=== PATIENT | male | born 1960 | race Caucasian/White ===

== ENCOUNTER 2020-05-07 13:53 | Day surgery (SDC) | payer MEDICARE ==
[2020-04-30 16:02] LABS: BASOPHILS % (AUTO) 0.2 % (0-1); EOSINOPHILS # (AUTO) 0.1 X10'3 (0-0.9); EOSINOPHILS % (AUTO) 1.3 % (0-6); LYMPHOCYTES # (AUTO) 1.3 X10'3 (1.1-4.8); LYMPHOCYTES % (AUTO) 27.5 % (21-51); MEAN CORPUSCULAR HEMOGLOBIN 27.2 PG (27.0-31.0); MEAN CORPUSCULAR HGB CONC 32.9 g/dL (33.0-36.5); MEAN CORPUSCULAR VOLUME 82.7 FL (78-98); MEAN PLATELET VOLUME 7.7 FL (7.4-10.4); MONOCYTES # (AUTO) 0.5 X10'3 (0-0.9); MONOCYTES % (AUTO) 9.4 % (2-12); NEUTROPHILS % (AUTO) 61.6 % (42-75); PRE OP HEMATOCRIT 42.1 % (42.0-52.0); PRE OP HEMOGLOBIN 13.8 g/dL (14.0-17.9); PRE OP PLATELET COUNT 213 X10'3 (140-440); RED BLOOD COUNT 5.08 X10'6 (4.70-6.10); RED CELL DISTRIBUTION WIDTH 15.5 % (11.5-14.5)
[2020-04-30 16:23] LABS: ALBUMIN 3.7 G/DL (3.4-5.0); ALBUMIN/GLOBULIN RATIO 0.8 (1.1-1.5); ALKALINE PHOSPHATASE 101 IU/L (46-116); BLOOD UREA NITROGEN 18 MG/DL (7-18); BUN/CREATININE RATIO 14.6 (5.4-32.0); CALCIUM 9.2 MG/DL (8.5-10.1); CHLORIDE 101 MMOL/L (99-107); CREATININE 1.23 MG/DL (0.60-1.10); PRE OP ALT 20 U/L (30-65); PRE OP ANION GAP 7 (8-16); PRE OP AST 12 U/L (10-37); PRE OP BILIRUB, TOTAL 0.7 MG/DL (0.0-1.0); PRE OP GLUCOSE 144 MG/DL (70-104); PRE OP SODIUM 135 MMOL/L (135-145); TOTAL CARBON DIOXIDE 26.8 MMOL/L (24-32); TOTAL PROTEIN 8.4 G/DL (6.4-8.2); eGFR 60 ML/MIN
[~2020-05-07] VITALS: Ht 190.5 cm; Wt 110.9 kg
[2020-05-07] VITALS (7 sets, daily range): BP systolic 126–155; BP diastolic 71–90
[~2020-05-07 13:53] MED LIST: EMPA10TA PO; GLIP10TA11 PO; METF-438 PO; PIOG15TA8 PO; SIMV10TA98 PO; ceFAZolin 2gm in dextrose, iso 50 ML IV ONE; famotidine 20mg tablet PO ONE; ringers solution, lacted 1,000 ML IV SCH
[2020-05-07] MEDS ORDERED: sevoflurane 250ml liquid IH ONE (15:54)
[2020-05-07] MEDS ORDERED: fentaNYL/PF 50MCG/1 ML 2ML syringe ONE (15:54)
[2020-05-07] MEDS ORDERED: midazolam 2 mg/2 ml injection ONE (15:56)
[2020-05-07] MEDS ORDERED: ondansetron/PF 4mg/2ml inj ONE (16:08)
[2020-05-07] MEDS ORDERED: LIDOcaine 2% (20mg/ml) 5ml vial ONE (16:08)
[2020-05-07] MEDS ORDERED: dexamethasone sod phosphate 4mg/ml inj. ONE (16:08)
[2020-05-07] MEDS ORDERED: propofol inj 20 ML IV ONE (16:08)
[2020-05-07] MEDS ORDERED: acetaminophen 1,000mg/100ml IV 100 ML IV PRN (16:45)
[2020-05-07] MEDS ORDERED: morphine 4 MG/ML inj SYRINge IV PRN (16:45)
[2020-05-07] MEDS ORDERED: proCHLORperazine 10 MG/2 ml inj IV PRN (16:45)
[2020-05-07] MEDS ORDERED: hydrALAZINE 20mg/ml inj. IV PRN (16:45)
[2020-05-07] MEDS ORDERED: ondansetron/PF 4mg/2ml inj IV PRN (16:45)
[2020-05-07] MEDS ORDERED: meperidine/PF 25mg/ml syringe IV PRN ×3 (16:45)
[2020-05-07] MEDS ORDERED: morphine 2 MG/ML inj. syringe IV PRN (16:45)
[2020-05-07] MEDS ORDERED: labetalol 20mg/4ml (5mg/ml) syringe IV PRN (16:45)
[2020-05-07] MEDS ORDERED: ringers solution, lacted 1,000 ML IV SCH (16:45)
--- NOTE | 2020-05-07 16:45 | NUR ---
Received from OR via [facility], accompanied by Anesthesiologist DAYNE and report given by Anesthesiolgist. PATIENT WITH 20G PIV IN LEFT UE RUNNING LR AT 100. RIGHT FOOT DRESSING IS CDI. VSS. Addendum: 05/07/20 at 1726 by Srinivasa Morris RN, RN Amended: Links added.
--- NOTE | 2020-05-07 17:35 | NUR ---
ALL CRITERIA FOR DC HOME HAS BEEN ACHIEVED. VOIDED AND PATIENT OUT VIA WHEELCHAIR TO PERSONAL VEHICLE. PATIENT IV OUT WITHOUT ISSUE. VSS. DENIES PAIN. NEW CAM WALKER DONNED TO RIGHT LE. OUT VIA WHEELCHAIR TO PERSONAL VEHICLE WHERE SPOUSE DROVE PATIENT HOME. Addendum: 05/07/20 at 1757 by Srinivasa Morris RN, RN Amended: Links added.
== END 2020-05-07 17:35 | disposition home or self-care (01) ==
LOC: PAS 13:53
PROVIDERS: ATTEND Podiatrist Foot & Ankle Surgery
DX: E11.69 Type 2 diabetes mellitus with other specified complication (principal); M86.8X7 Other osteomyelitis, ankle and foot; E11.621 Type 2 diabetes mellitus with foot ulcer; L97.419 Non-pressure chronic ulcer of right heel and midfoot with unspecified severity; E78.5 Hyperlipidemia, unspecified; Z79.82 Long term (current) use of aspirin; Z79.84 Long term (current) use of oral hypoglycemic drugs; Z79.899 Other long term (current) drug therapy; Z20.828 Contact with and (suspected) exposure to other viral communicable diseases; X58.XXXA Exposure to other specified factors, initial encounter; Y93.89 Activity, other specified; Y92.89 Other specified places as the place of occurrence of the external cause; Y99.8 Other external cause status
CPT/HCPCS: 28122; 36415; 73620; 76000; 80053; 82948; 85025; 87070; 87635; 93005; A6223; J1100; J2001; J2250; J2405; J2704; J3010; J7120; L4360; A4215; A4618; A6449; A7000